=== PATIENT | female | born 1965 | race Two or more races ===

== ENCOUNTER 2020-05-18 13:02 | Emergency (ER) | payer OTHER ==
[2020-05-18 13:05] VITALS: BP 151/99; PULSE 83; TEMP 98.1; BMI 27.4
[2020-05-18] MEDS ORDERED: ACETAMINOPHEN 500 MG TABLET (FP) PO ONE (13:32)
== END 2020-05-18 14:57 | disposition home or self-care (01) ==
LOC: JERFT 13:02
DX: S60.222A Contusion of left hand, initial encounter (principal)
CPT/HCPCS: 73110-TC-LT-FY; 73130-TC-LT-FY; 99284-25

== ENCOUNTER 2020-07-01 12:23 | Emergency (ER) | payer OTHER ==
[2020-07-01 12:29] VITALS: BP 112/81; PULSE 71; TEMP 98.1; BMI 26.5
== END 2020-07-01 15:02 | disposition home or self-care (01) ==
LOC: JERFT 12:23
DX: R11.0 Nausea (principal); S09.90XA Unspecified injury of head, initial encounter; R51.9 Headache, unspecified
CPT/HCPCS: 70450-TC; 99284-25